=== PATIENT | male | born 1960 | race Caucasian/White ===

== ENCOUNTER 2017-01-15 04:36 | Inpatient (IN) | payer OTHER ==
[~2017-01-15] VITALS: Ht 180.3 cm; Wt 75.0 kg
[2017-01-15 06:50] VITALS: BP 131/80; PULSE 84; RESP 19
[2017-01-15 08:00] VITALS: BP 135/89; RESP 21
--- NOTE | 2017-01-15 13:23 | HP ---
Date/Time of Note Date/Time of Note DATE: 01/15/17 TIME: 13:17 Assessment/Plan VTE Prophylaxis VTE Prophylaxis Intervention: ambulation Assessment/Plan Chief Complaint/Hosp Course 1. Meth abuse with tachycardia-stable -fibreglass lay up worker consult 2. Rhabdomyolysis with acute kidney injury -IV fluids, monitor CK Prophylaxis: Ambulation Problems: HPI/ROS Admit Date/Time Admit Date/Time Jan 15, 2017 at 06:22 Hx of Present Illness Patient is a 56-year-old male with a history of meth abuse, patient presents with tachycardia after having used meth. Patient was found to be in rhabdomyolysis with acute kidney injury at outside hospital. Patient denies any acute muscle pain, he denies any change in his urination. Patient states that he had been free of meth use for many months but relapsed. Patient has no other complaints at this time. ROS Constitutional: improved, no complaints Eyes: no complaints ENT: no complaints Respiratory: no complaints Cardiovascular: no complaints Gastrointestinal: no complaints Genitourinary: no complaints Musculoskeletal: no complaints Skin: no complaints Neurologic: no complaints Endocrine: no complaints Lymphatic: no complaints Psychological: nl mood/affect, no complaints Immunologic: no complaints PMH/Family/Social Past Medical History Medical History: no pertinent history Family History Significant Family History: no pertinent family hx Social History History of alcohol abuse Smoking Status: Current every day smoker Drug Use: other (Meth) Exam/Review of Systems Vital Signs Vitals Vital Signs Date Time Temp Pulse Resp B/P Pulse Ox O2 Delivery O2 Flow Rate FiO2 01/15/17 08:00 98.2 75 21 135/89 100 01/15/17 06:50 Room Air Exam Constitutional: alert, oriented Head: normocephalic Respiratory: clear to auscultation Cardiovascular: regular rate and rhythm Gastrointestinal: soft, No distended Musculoskeletal: nl extremities to inspection Medications Medications Current Medications Sodium Chloride (1/2 NS) 1,000 ml @ 125 mls/hr Q8H IV ; Start 01/15/17 at 13:11 ; Status UNV Ondansetron HCl (Zofran Inj) 4 mg Q6H PRN IV NAUSEA AND/OR VOMITING; Start at 13:30; Status UNV Acetaminophen (Tylenol Tab) 650 mg Q6H PRN PO PAIN LEVEL 1-3 OR FEVER; Start at 13:30; Status UNV Acetaminophen/ Hydrocodone Bitart ([employer] (5/325)) 1 tab Q6H PRN PO MODERATE PAIN LEVEL 4-6; Start 01/15/17 at 13:30; Status UNV Morphine Sulfate (morphine) 2 mg Q4H PRN IV SEVERE PAIN LEVEL 7-10; Start 01/15 at 13:30; Status UNV Docusate Sodium (Colace) 100 mg Q12H PRN PO CONSTIPATION; Start 01/15/17 at 13: 30; Status UNV Zolpidem Tartrate (Ambien) 5 mg QHS PRN PO SLEEP; Start 01/15/17 at 13:30; Status UNV WILL SARAH Jan 15, 2017 13:23
[2017-01-15] MEDS ORDERED: NACL 0.9% 3 ML SYG IV SCH (13:30)
[2017-01-15] MEDS ORDERED: DOCUSATE SODIUM 100 MG CAP PO PRN (13:30)
[2017-01-15] MEDS ORDERED: ONDANSETRON 4 MG INJ IV PRN (13:30)
[2017-01-15] MEDS ORDERED: ZOLPIDEM 5 MG TAB PO PRN (13:30)
[2017-01-15] MEDS ORDERED: ACETAMINOPHEN 325 MG TAB PO PRN (13:30)
[2017-01-15 13:56] VITALS: Ht 180.3 cm; Wt 75.0 kg
[2017-01-15 14:00] VITALS: BP 130/80; RESP 19
[2017-01-15] MEDS: SOD CHLORIDE 0.45% 1,000 ML IV SCH (14:35)
[2017-01-15] MEDS: HYDROCODONE/APAP (5/325) TAB PO PRN ×2 (14:35→23:38)
[2017-01-15 20:43] VITALS: BP 106/62; RESP 18
[2017-01-16] MEDS: SOD CHLORIDE 0.45% 1,000 ML IV SCH ×4 (01:20→17:40)
[2017-01-16 02:51] VITALS: BP 109/58; RESP 18
[2017-01-16 06:42] LABS: BASOPHIL # 0.1 10^3/ul (0.0-0.1); BASOPHILS % 0.6 % (0.0-2.0); EOSINOPHILS # 0.1 10^3/ul (0.0-0.5); EOSINOPHILS % 1.5 % (0.0-7.0); HEMATOCRIT 42.9 % (42.0-52.0); HEMOGLOBIN 14.3 g/dl (14.0-18.0); LYMPHOCYTES # 2.3 10^3/ul (0.8-2.9); MEAN CORPUSCULAR HEMOGLOBIN 30.1 pg (29.0-33.0); MEAN CORPUSCULAR HGB CONC 33.3 g/dl (32.0-37.0); MEAN CORPUSCULAR VOLUME 90.3 fl (82.0-101.0); MEAN PLATELET VOLUME 10.5 fl (7.4-10.4); MONOCYTE # 0.7 10^3/ul (0.3-0.9); NEUTROPHILS % 59.6 % (39.0-77.0); PLATELET COUNT 289 10^3/UL (140-415); RED BLOOD COUNT 4.75 10^6/ul (4.70-6.10); WHITE BLOOD COUNT 7.9 10^3/ul (4.8-10.8)
[2017-01-16 07:05] LABS: ALBUMIN 3.4 g/dl (3.3-4.9); ALBUMIN/GLOBULIN RATIO 1.06; BILIRUBIN,INDIRECT 0.6 mg/dl (0-1.1); BILIRUBIN,TOTAL 0.6 mg/dl (0.2-1.3); CALCIUM 9.1 mg/dl (8.4-10.2); CREATININE 0.92 mg/dl (0.61-1.24); MAGNESIUM 2.1 mg/dl (1.7-2.5); POTASSIUM 4.2 mmol/L (3.5-5.1); TOTAL PROTEIN 6.6 g/dl (6.1-8.1)
[2017-01-16 08:00] VITALS: BP 122/75; RESP 20
[2017-01-16] MEDS: morphine 2 MG INJ IV PRN ×2 (08:50→12:40)
[2017-01-16 15:39] VITALS: BP 102/64; RESP 20
--- NOTE | 2017-01-16 17:47 | PN ---
Date/Time of Note Date/Time of Note DATE: 01/16/17 TIME: 17:46 Assessment/Plan VTE Prophylaxis VTE Prophylaxis Intervention: ambulation Lines/Catheters IV Catheter Type (from Nrs): Peripheral IV Urinary Cath still in place: No Assessment/Plan Chief Complaint/Hosp Course 1. Meth abuse with tachycardia-stable -abatement worker consult 2. Rhabdomyolysis with acute kidney injury-resolving -IV fluids, monitor CK Prophylaxis: Ambulation DC tomorrow Problems: Subjective 24 Hr Interval Summary Musculoskeletal: back pain Exam/Review of Systems Vital Signs Vitals Vital Signs Date Time Temp Pulse Resp B/P Pulse Ox O2 Delivery O2 Flow Rate FiO2 01/16/17 15:39 97.6 67 20 102/64 96 01/15/17 06:50 Room Air Intake and Output 01/15/17 01/15/17 01/16/17 15:00 23:00 07:00 Intake Total 720 ml 2075 ml Output Total 450 ml Balance 720 ml 1625 ml Exam Constitutional: alert, oriented Respiratory: clear to auscultation Cardiovascular: regular rate and rhythm Gastrointestinal: soft, No distended Musculoskeletal: nl extremities to inspection Results Result Diagram: 01/16/17 0518 01/16/17 0518 Results 24 hrs Laboratory Tests Test 01/16/17 05:18 White Blood Count 7.9 Red Blood Count 4.75 Hemoglobin 14.3 Hematocrit 42.9 Mean Corpuscular Volume 90.3 Mean Corpuscular Hemoglobin 30.1 Mean Corpuscular Hemoglobin Concent 33.3 Red Cell Distribution Width 12.0 Platelet Count 289 Mean Platelet Volume 10.5 H Neutrophils % 59.6 Lymphocytes % 29.0 Monocytes % 9.0 Eosinophils % 1.5 Basophils % 0.6 Nucleated Red Blood Cells % 0.0 Neutrophils # (Manual) 4.7 Lymphocytes # 2.3 Monocytes # 0.7 Eosinophils # 0.1 Basophils # 0.1 Nucleated Red Blood Cells # 0.0 Sodium Level 138 Potassium Level 4.2 Chloride Level 102 Carbon Dioxide Level 25 Anion Gap 15 Blood Urea Nitrogen 18 Creatinine 0.92 Glucose Level 82 Hemoglobin A1c 5.3 Calcium Level 9.1 Phosphorus Level 4.0 Magnesium Level 2.1 Total Bilirubin 0.6 Direct Bilirubin 0.00 Indirect Bilirubin 0.6 Aspartate Amino Transf (AST/SGOT) 46 Alanine Aminotransferase (ALT/SGPT) 40 Alkaline Phosphatase 50 Creatine Kinase 412 H Total Protein 6.6 Albumin 3.4 Globulin 3.20 Albumin/Globulin Ratio 1.06 Medications Medications Current Medications Sodium Chloride (1/2 NS) 1,000 ml @ 125 mls/hr Q8H IV Last administered on 17:40; Admin Dose 125 MLS/HR; Start 01/15/17 at 13:11 Ondansetron HCl (Zofran Inj) 4 mg Q6H PRN IV NAUSEA AND/OR VOMITING; Start at 13:30 Acetaminophen (Tylenol Tab) 650 mg Q6H PRN PO PAIN LEVEL 1-3 OR FEVER; Start at 13:30 Acetaminophen/ Hydrocodone Bitart ([employer] (5/325)) 1 tab Q6H PRN PO MODERATE PAIN LEVEL 4-6 Last administered on 01/15/17 23:38; Admin Dose 1 TAB; Start at 13:30 Morphine Sulfate (morphine) 2 mg Q4H PRN IV SEVERE PAIN LEVEL 7-10 Last administered on 01/16/17 12:40; Admin Dose 2 MG; Start 01/15/17 at 13:30 Docusate Sodium (Colace) 100 mg Q12H PRN PO CONSTIPATION; Start 01/15/17 at 13: 30 Zolpidem Tartrate (Ambien) 5 mg QHS PRN PO SLEEP; Start 01/15/17 at 13:30 WILL SARAH Jan 16, 2017 17:47
[2017-01-16 20:00] VITALS: BP 103/62; RESP 20
[2017-01-17 02:00] VITALS: BP 111/58; RESP 20
[2017-01-17] MEDS: SOD CHLORIDE 0.45% 1,000 ML IV SCH ×2 (02:24→11:39)
[2017-01-17 07:43] LABS: CALCIUM 9.2 mg/dl (8.4-10.2); CREATININE 0.96 mg/dl (0.61-1.24); POTASSIUM 4.9 mmol/L (3.5-5.1)
[2017-01-17 08:00] VITALS: BP 118/69; RESP 17
--- NOTE | 2017-01-17 12:51 | PDOCDIS ---
Discharge Instructions CONDITION Patient Condition: Good HOME CARE INSTRUCTIONS: Diet Instructions: Regular ACTIVITY: Activity Restrictions: No Restrictions FOLLOW UP/APPOINTMENTS Follow-up Plan F/U WITH YOUR PCP IN 1-2 WEEKS WILL SARAH Jan 17, 2017 12:51
[2017-01-17 14:00] VITALS: BP 180/56; RESP 17
--- NOTE | 2017-01-17 15:12 | DS ---
Date/Time of Note Date/Time of Note DATE: 01/17/17 TIME: 15:10 Discharge Summary Admission/Discharge Info Admit Date/Time Jan 15, 2017 at 06:22 Discharge Date/Time January 17, 2017 Discharge Diagnosis 1. Meth abuse with tachycardia-stable -Cessation advised 2. Rhabdomyolysis with acute kidney injury-resolved Patient Condition: Good Hospital Course Patient is a 56-year-old male with a history of meth abuse, patient presents with tachycardia after having used meth. Patient was found to be in rhabdomyolysis with acute kidney injury at outside hospital. Patient denies any acute muscle pain, he denies any change in his urination. Patient received IV fluids and rhabdomyolysis resolved as did acute kidney injury. Patient's tachycardia resolved and patient was advised for cessation of drug abuse. On the day of discharge patient vitals, labs physical exam stable and no further acute complaints and questions are answered. Home Meds No Active Prescriptions or Reported Meds Follow-up Plan FOLLOW UP WITH YOUR PRIMARY CARE PHYSICIAN IN 1-2 WEEKS Primary Care Provider Not On Staff Doctor Time spent on discharge: > 30 minutes WILL SARAH Jan 17, 2017 15:12
== END 2017-01-17 17:16 | disposition home or self-care (01) | DRG 683 ==
LOC: PP2 06:22
PROVIDERS: ADMIT Internal Medicine; ATTEND Internal Medicine
DX: N17.9 Acute kidney failure, unspecified (principal); M62.82 Rhabdomyolysis; F15.20 Other stimulant dependence, uncomplicated; F17.210 Nicotine dependence, cigarettes, uncomplicated
CPT/HCPCS: 80048; 80053; 82550; 83036; 83735; 84100; 85025; J2270